=== PATIENT | female | born 1960 | race Caucasian/White ===

== ENCOUNTER → 2016-08-14 | Outpatient (CLI) | payer OTHER ==
[~2016-08-14] MED LIST: ANEXSIA 7.5/3251 TA1 PO; DELTASONE20 MG PO; HYDROCODON-ACE1 EAC9 PO; K-DUR10 MEQ PO; LEVOXYL150 MC1 PO; OMEPRAZOLE20 M1 PO; PROTONIX PO; PROZAC PO; REGLAN PO; REQUIP0.5 MG PO; ROBAXIN500 MG PO; SODIUM BICARBO650 MG PO; ZOFRANODT PO
== END | disposition home or self-care (01) ==
LOC: CSSDAY 10:04
PROC: 3C1ZX8Z Irrigation of Indwelling Device using Irrigating Substance, External Approach (ICD-10-PCS; principal; 2016-08-14)
DX: Z45.2 Encounter for adjustment and management of vascular access device (principal)
CPT/HCPCS: J1642

== ENCOUNTER → 2016-09-14 | Outpatient (CLI) | payer OTHER | END | disposition home or self-care (01) | LOC: CSSDAY 12:40 | PROC: 3C1ZX8Z Irrigation of Indwelling Device using Irrigating Substance, External Approach (ICD-10-PCS; principal; 2016-09-14) | DX: Z45.2 Encounter for adjustment and management of vascular access device (principal) | CPT/HCPCS: G0463; J1642 ==

== ENCOUNTER → 2016-10-12 | Outpatient (CLI) | payer OTHER | END | disposition home or self-care (01) | LOC: CSSDAY 12:54 | PROC: 3C1ZX8Z Irrigation of Indwelling Device using Irrigating Substance, External Approach (ICD-10-PCS; principal; 2016-10-12) | DX: Z45.2 Encounter for adjustment and management of vascular access device (principal) | CPT/HCPCS: G0463; J1642 ==

== ENCOUNTER → 2016-11-18 | Outpatient (CLI) | payer OTHER | END | disposition home or self-care (01) | LOC: CSSDAY 09:00 | PROC: 3C1ZX8Z Irrigation of Indwelling Device using Irrigating Substance, External Approach (ICD-10-PCS; principal; 2016-11-18) | DX: Z45.2 Encounter for adjustment and management of vascular access device (principal) | CPT/HCPCS: J1642 ==

== ENCOUNTER → 2016-12-16 | Outpatient (CLI) | payer OTHER | END | disposition home or self-care (01) | LOC: CSSDAY 10:00 | PROC: 3C1ZX8Z Irrigation of Indwelling Device using Irrigating Substance, External Approach (ICD-10-PCS; principal; 2016-12-16) | DX: Z45.2 Encounter for adjustment and management of vascular access device (principal) | CPT/HCPCS: G0463; J1642 ==

== ENCOUNTER → 2017-01-13 | Outpatient (CLI) | payer OTHER | END | disposition home or self-care (01) | LOC: CSSDAY 08:00 | DX: Z45.2 Encounter for adjustment and management of vascular access device (principal) | CPT/HCPCS: G0463; J1642 ==